=== PATIENT | male | born 1955 | race Caucasian/White ===

== ENCOUNTER 2016-12-07 14:39 | Emergency (ER) | payer BC ==
[2016-12-07] MEDS ORDERED: NORMAL SALINE 10 ML SYRINGE FLUSH IVP PRN (14:52)
--- NOTE | 2016-12-07 14:54 | EKG ---
[address] [address] Measurements Intervals [place] Rate: 84 P: 53 OH: 150 QRS: 52 QRSD: 90 T: 68 QT: 365 QTc: 406 Interpretive Statements SINUS RHYTHM MODERATE ST DEPRESSION [0.05+ mV ST DEPRESSION] INTERPRETATION BASED ON A DEFAULT AGE OF 40 YEARS No previous ECG available for comparison Electronically Signed On 12-07-16 16:44:12 MDT by Edmar Guajardo MD [email or web address]
[2016-12-07] MEDS ORDERED: Sodium Chloride 0.9% 1,000 ML PRIMARY IV SCH (15:15)
[2016-12-07 15:16] VITALS: RESP 17
[2016-12-07 15:22] LABS: BASOPHILS # (AUTO) 0.04 10*3/UL; BASOPHILS % (AUTO) 0.4 % (0-1); EOSINOPHILS # (AUTO) 0.29 10*3/UL; EOSINOPHILS % (AUTO) 3.2 % (0-8); HEMATOCRIT 42.1 % (42.0-52.0); HEMOGLOBIN 14.1 g/dL (14.0-18.0); MEAN CORPUSCULAR HEMOGLOBIN 30.5 PG (27-31); MEAN CORPUSCULAR HGB CONC 33.5 g/dL (33-37); MEAN CORPUSCULAR VOLUME 91.1 FL (80-90); MEAN PLATELET VOLUME 9.6 FL (7.4-12.2); MONOCYTES # (AUTO) 0.58 10*3/UL (0.3-0.8); MONOCYTES % (AUTO) 6.4 % (5-15); NEUTROPHILS % (AUTO) 56.6 % (50-80); RED BLOOD COUNT 4.62 10^6/uL (4.70-6.10)
[2016-12-07 15:28] LABS: PLATELET MORPHOLOGY COMMENT NORMAL MORPHOLOGY (NORM); RBC MORPHOLOGY COMMENT NORMAL MORPHOLOGY (NORM); WBC MORPHOLOGY COMMENT NORMAL MORPHOLOGY (NORM)
[2016-12-07 15:40] LABS: BLOOD UREA NITROGEN 22 mg/dL (7-22); CALCIUM 9.4 mg/dL (8.7-10.7); EST GLOMERULAR FILTRATION > 60 (>60 ml/min/1.73m(2))
[2016-12-07 16:20] LABS: CREATINE KINASE MB 2.02 NG/ML (0.00-5.00)
--- NOTE | 2016-12-07 16:21 | DI ---
AP CHEST X-RAY, 12/07/2016 2:53 PM : Clinical History: Chest pain. Previous Exam: None at this facility. There is no acute soft tissue or bony abnormality. The patient is status post CABG. There is mild car diomegaly without CHF. Lungs are clear. Mediastinal structures are normal. There are 2 roughly 3 mm h igh density radiodensities in the right upper lung field lateral to the level of the sternal wires in the medial clavicular line. These are consistent with calcified granulomata. Readin. Mild cardiomegaly without CHF. 2. No acute infiltrate or effusion is present. 3. Old granulomatous disease and coronary artery disease.
[2016-12-07 16:23] LABS: TROPONIN I 0.149 ng/mL (< 0.040)
[2016-12-07] MEDS ORDERED: HEPARIN 5000 UNIT/1 ML IV ONE (16:23)
[2016-12-07] MEDS ORDERED: HEPARIN 5000 UNIT/1 ML ONE (16:26)
--- NOTE | 2016-12-07 16:36 | PDOC ---
Chest Pain HPI - General Chief Complaint: Chest Pain Stated Complaint: LEFT SIDED CHEST PAIN INTO NECK AT 1350 TODAY Date Seen by Provider: 12/07/16 Time Seen by Provider: 14:40 Source: Patient Exam Limitations: POSITIVE: No limitations Treatment Prior to Arrival: REPORTS: Aspirin (Patient took 1 baby aspirin this morning and was given 3 additional baby aspirin per EMS in route) Nurse's Notes Reviewed & Considered: Yes EMS Report Reviewed & Considered: Verbal - History of Present Illness Initial Comments: The patient is a 60-year-old male who presents to the emergency department by ambulance with complaints of chest pain. He does have a known history of coronary artery disease and is status post bypass surgery 10 years ago[address] sees [address]. 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 He reportedly had an exercise stress test as well as echocardiogram and carotid Dopplers done about 5 weeks ago all of which were good according to the patient. He states that today while at work he was standing talking to a coworker when he had onset of pain between his shoulder blades which subsequently radiated through to his mid chest and up the left side of his neck. He denies any associated shortness of breath, diaphoresis, palpitations or nausea. He does however state that his pain is similar to heart attacks that he has had in the past. He states that initially his pain was about an 8 out of 10. His coworker subsequently called EMS. When they arrived his pain had improved significantly down to about a 1 out of 10. His initial EKG in the field did not reveal any acute ST segment changes. He normally takes baby aspirin daily and was given 3 additional baby aspirin in the field. On arrival he states that his pain is quite minimal and would not even rate it. He does continue to smoke approximately 17 cigarettes per day. He also takes medication for blood pressure and hyperlipidemia. He denies any history of diabetes. He denies any pain or swelling in his legs. - Patient Home Medications Home Medications: Home Medications Aspirin 81 mg PO DAILY 12/07/16 Blood Pressure Med 1 tab PO DAILY 12/07/16 Statin 1 tab PO DAILY 12/07/16 - Patient Allergies Allergies/Adverse Reactions: Allergies Allergy/AdvReac Type Severity Reaction Status Date / Time No Known Allergies Allergy Verified 12/07/16 14:57 Past Medical History - heen HEENT History: Other (please comment) Additional HEENT History: WEARS GLASSES Cardiovascular History: Hypertension, CAD, Hyperlipidemia, Other (please comment ) Additional Cardiovasular History: CABG x5 VESSEL 10 YEARS AGO, EXERCISE STRESS TEST/ECHO 10/2016 Respiratory History: Denies History Gastrointestinal History: Denies History Genitourinary History: Denies History Endocrine History: Denies History Musculoskeletal History: Denies History Prosthesis or Implant: No Neurological History: Denies History Blood Disorders: Denies History Psychiatric History: Denies History History of Sexually Transmitted Diseases: No Male Reproductive History: Denies History Cancer History: Denies History In Past Year Been Physically Harmed or Verbally Threatened: No (PER PATIENT) History of MDRO: No History of Other Communicable Diseases: No Tobacco Use: Current Every Day Smoker Alcohol Use: Occasionally Substance Use Type: Marijuana Previous Surgical History: Yes Type / Date of Surgery: CABG X5 VESSELS, APPENDECTOMY Anesthesia Reactions: No Malignant Hyperthermia: No Family History of Malignant Hyperthermia: No Significant Family History: No pertinent family hx Past Medical History Reviewed: Reviewed - No Changes ROS - Limitations ROS Limitations: No Limitations Constitution: REPORTS: Denies Symptoms Cardiovascular: REPORTS: Chest Pain Respiratory: REPORTS: Denies Resp Symptoms. DENIES: Hurts To Breathe, Shortness Of Breath Neurological: REPORTS: Denies Neuro Symptoms Gastrointestinal: REPORTS: Denies GI Symptoms. DENIES: Nausea Musculoskeletal: REPORTS: Denies MS Symptoms. DENIES: Calf Pain, Lower Extremity Swelling Eyes: REPORTS: Denies Symptoms ENT: REPORTS: Denies Symptoms Skin: DENIES: Rash Chest Pain PE - General Appearance General Appearance: REPORTS: Alert, Cooperative, No Acute Distress - HEENT HEENT: POSITIVE: Head Inspection Nml, Eyes Inspection Nml, Ears Inspection Nml, PERRL, EOMI - Neck Neck: REPORTS: Normal Inspection. DENIES: JVD Present, Lymphadenopathy - Respiratory Respiratory: REPORTS: No Respiratory Distress, Breath Sounds Normal, Chest Non- Tender - Cardiovascular Cardiovascular: REPORTS: Regular Rate and Rhythm, Heart Sounds Normal Peripheral Pulses: Radial (R): 2+, Radial (L): 2+ - Abdomen Abdomen: Soft: (All Quadrants), Denies Tenderness: (All Quadrants), No Distention: (All Quadrants) - Skin Skin: REPORTS: Intact, No Rash - Extremities Extremity: Normal ROM: (All Extremities), Normal Inspection: (All Extremities) - Neurological / Psychological Neurological: POSITIVE: Oriented X3, Motor Normal, Sensation Normal Chest Pain Progress - Results Reviewed by me Xrays/CTs/US Reviewed by me: Yes Radiology Findings: Chest x-ray shows normal heart size, normal mediastinum and normal lung usarez. Lab Results Reviewed: Yes Lab Results:: Laboratory Results 12/07/16 Range/Units 15:16 WBC 9.03 (4.8-10.8) 10^3/uL RBC 4.62 L (4.70-6.10) 10^6/uL Hgb 14.1 (14.0-18.0) g/dL Hct 42.1 (42.0-52.0) % MCV 91.1 H (80-90) FL MCH 30.5 (27-31) PG MCHC 33.5 (33-37) g/dL RDW Std Deviation 51.0 H (39-50) fL RDW Coeff of Monse 15.5 H (11.5-14.5) % Plt Count 322 (140-350) 10*3/uL MPV 9.6 (7.4-12.2) FL Immature Gran % (Auto) 0.2 (0-5) % Neut % (Auto) 56.6 (50-80) % Lymph % (Auto) 33.2 (10-50) % [place] % (Auto) 6.4 (5-15) % Eos % (Auto) 3.2 (0-8) % Baso % (Auto) 0.4 (0-1) % Immature Gran # (Auto) 0.02 10*3/UL Neut # (Auto) 5.10 10*3/UL Lymph # (Auto) 3.00 10*3/uL [place] # (Auto) 0.58 (0.3-0.8) 10*3/UL Eos # (Auto) 0.29 10*3/UL Baso # (Auto) 0.04 10*3/UL WBC Morphology Comment Normal morphology (NORM) Plt Morphology Comment Normal morphology (NORM) RBC Morph Comment Normal morphology (NORM) D-Dimer 0.66 H (0.00-0.59) mg/L Sodium 142 (135-145) meq/L Potassium 4.4 (3.8-5.2) meq/L Chloride 108 (98-112) meq/L Carbon Dioxide 22 L (23-33) meq/L Anion Gap 12 (5-20) BUN 22 (7-22) mg/dL Creatinine 1.1 (0.70-1.50) mg/dL Estimated GFR > 60 (>60 ml/min/1.73m(2)) BUN/Creatinine Ratio 20.00 (6-20) Glucose 79 (78-110) mg/dL Calculated Osmolality 295.0 H (267-292) mOsm/kg Calcium 9.4 (8.7-10.7) mg/dL Total Bilirubin 0.5 (0.3-1.2) mg/dL AST 27 (21-57) IU/L ALT 44 (21-72) IU/L Alkaline Phosphatase 95 (38-126) IU/L CK-MB (CK-2) 2.02 (0.00-5.00) NG/ML Troponin I 0.149 H* (< 0.040) ng/mL Total Protein 7.1 (6.1-8.0) g/dL Albumin 4.0 (3.5-4.8) g/dL Globulin 3.2 (2.50-4.10) g/dL Albumin/Globulin Ratio 1.20 L (1.3-2.0) mg/g EKG Interpreted/Reviewed By Me:: Yes EKG Interpretation:: POSITIVE: Normal Sinus Rhythm, Normal Rate, Normal QRS, Normal ST/T, Other (No acute ST segment changes) - Patient's Progress MDM / ED Course: By the time the patient arrived in the emergency department his pain had basically resolved, at most he rated at a 1 out of 10. His initial EKG did not show any evidence of any ST segment changes. His blood pressure was mildly elevated. He had received aspirin per EMS. Blood work was obtained for analysis and chest x-ray was obtained. His d-dimer came back slightly elevated at 0.66. I had discussed with him doing a CT PE protocol. He was reluctant to have any further testing and wanted me to discuss his care with Dr. Koehler. His troponin subsequent he came back slightly elevated as well. I did discuss the patient with Dr. Koehler and he recommended initiation of treatment with heparin per cardiac protocol and transfer for cardiac catheterization. I discussed these findings and recommendation with the patient. He is in agreement with this plan. Arrangements will be made to send the patient by ambulance to [facility] [place]. - Consult Counseled: POSITIVE: Patient, RE: Lab Results, RE: Radiology Results, RE: DX Patient Care Time - Estimated PCT Patient Care Time (In Minutes): 35 Vital Signs - Recent Vital Signs Vital Signs: Vital Signs (Last 8 hours) Temp Pulse Pulse Resp BP Pulse Ox 12/07/16 14:44 84 12/07/16 14:39 97.8 F 92 92 17 162/91 94 - VS Reviewed Vital Signs Reviewed: Yes Discharge Clinical Impression: Non-ST elevation (NSTEMI) myocardial infarction Discharge Disposition: Transferred to Tertiary Care Facility Condition: Fair Date Decision to Transfer to Another Facility: 12/07/16 Time Decision to Transfer to Another Facility: 16:30
[2016-12-07 18:26] VITALS: TEMP 98.3
== END 2016-12-07 17:00 | disposition short-term general hospital (02) ==
LOC: ER 14:39
DX: I21.4 Non-ST elevation (NSTEMI) myocardial infarction (principal); M54.89 Other dorsalgia; M54.2 Cervicalgia; I25.810 Atherosclerosis of coronary artery bypass graft(s) without angina pectoris
CPT/HCPCS: 36415; 71010; 80053; 82553; 84484; 85025; 85379; 85730; 93005; 93010; 96365; 96366; 99283; J1644